=== PATIENT | female | born 1930 | race Caucasian/White ===

== ENCOUNTER 2018-11-21 09:53 | Inpatient (IN) | payer MEDICARE ==
[~2018-11-21] VITALS: Ht 172.7 cm; Wt 78.2 kg
[2018-11-21] MEDS ORDERED: NAMENDA XR14 MG PO (10:00)
[2018-11-21] MEDS ORDERED: DONEPEZIL HCL10 MG PO (10:00)
[2018-11-21 10:59] LABS: BASOPHILS 0.3 % (0-2); EOSINOPHILS 3.2 % (0-7); HEMATOCRIT 37.6 % (36.0-48.0); HEMOGLOBIN 12.2 g/dL (12-16); IMMATURE GRANULOCYTES 0.2 % (0-5); LYMPHOCYTES 16.9 % (15-50); MCH 27.7 pg (26.0-34.0); MCHC 32.4 g/dL (31.0-37.0); MCV 85.3 fL (80.0-100.0); MEAN PLATELET VOLUME 10.6 fL (7.4-10.4); MONOCYTES 10.7 % (2-11); NEUTROPHILS 68.7 % (40-80); PLATELET COUNT 121 10x3/uL (130-400); RBC 4.41 10x6/uL (4.00-5.40); RDW 14.1 % (11.5-14.5)
[2018-11-21 11:13] LABS: ALBUMIN 2.9 g/dL (3.4-5.0); ALKALINE PHOSPHATASE 58 U/L (46-116); ALT (SGPT) 20 U/L (10-68); CALC OSMOLALITY 287 mosm/kg (275-300); CALCIUM 8.1 mg/dL (8.5-10.1); CARBON DIOXIDE 24.5 mmol/L (21.0-32.0); CHLORIDE - SERUM 109 mmol/L (98-107); CREATININE - SERUM 0.5 mg/dL (0.6-1.3); GLUCOSE 98 mg/dL (74-106); POTASSIUM - SERUM 3.8 mmol/L (3.5-5.1); PROTEIN - SERUM 5.6 g/dL (6.4-8.2); SODIUM 143 mmol/L (136-145); UREA NITROGEN 22 mg/dL (7-18); eGFR NON AFRICAN AMERICAN > 90 mL/min (90-120)
[2018-11-21 11:22] LABS: APPEARANCE CLEAR (CLEAR); BILIRUBIN NEGATIVE (NEGATIVE); COLOR YELLOW (YELLOW); GLUCOSE NEGATIVE (NEGATIVE); KETONE LARGE mg/dL (NEGATIVE); NITRITE NEGATIVE (NEGATIVE); PROTEIN NEGATIVE (NEGATIVE); UROBILINOGEN NORMAL (NORMAL)
[2018-11-21 11:23] LABS: BACTERIA NONE SEEN /hpf (NONE SEEN); EPITHELIAL CELLS 0-5 /hpf (0-5); MUCUS >1+ /lpf (NONE SEEN); RED CELLS - URINE NONE SEEN /hpf (0-5); WHITE CELLS - URINE 0-5 /hpf (0-5)
[2018-11-21 11:40] VITALS: BP 160/68
--- NOTE | 2018-11-21 11:55 | NUR ---
WRIST SPLINT PLACED ON PT. PT TO ROOM VIA STRETCHER. VERY TEARFUL, FAMILY AT BEDSIDE.
[2018-11-21 12:07] VITALS: Ht 172.7 cm; Wt 78.2 kg
--- NOTE | 2018-11-21 13:00 | NUR ---
PT ADMITTED TO ROOM WITH FAMILY. SPLIT NOTEDTO LT. WRIST WITH BRUISING NIOTED. GOOD ROM OF DIGITS. BRUISING NOTED TO COCCYX AND BILATERAL KNEES WITH GOOD ROM. DENIES ANY PAIN OR DISCOMFORT AT THIS TIME. FALL PRECAUTIONS IN PLACE DUE TO RECENT FALL. ENCOURAGED TO USE CALL LIGHT FOR ASSIST.
--- NOTE | 2018-11-21 16:54 | NUR ---
PT DISCHARGE HOME WITH FAMILY. VERBALIZED UNDERSTANDING OF DISCHAGE INSTRUCTIONS. STABLE AT TIME OF DEPARTURE.
== END 2018-11-21 16:55 | disposition home or self-care (01) | DRG 552 ==
LOC: D.ER 09:53 → D.MS 11:41
PROVIDERS: Family Medicine; ADMIT Internal Medicine Nephrology; ATTEND Internal Medicine Nephrology
DX: S32.10XA Unspecified fracture of sacrum, initial encounter for closed fracture (principal); S52.502A Unspecified fracture of the lower end of left radius, initial encounter for closed fracture; W19.XXXA Unspecified fall, initial encounter; F03.90 Unspecified dementia, unspecified severity, without behavioral disturbance, psychotic disturbance, mood disturbance, and anxiety

== ENCOUNTER 2018-11-21 09:53 | Outpatient (CLI) | payer MEDICARE ==
[2018-11-21] MEDS ORDERED: NAMENDA XR14 MG PO (10:00)
[2018-11-21] MEDS ORDERED: DONEPEZIL HCL10 MG PO (10:00)
[2018-11-21 12:07] VITALS: BMI 26.2
== END 2018-11-21 11:41 | disposition other institution (70) ==
LOC: D.OPS 09:53
PROVIDERS: ATTEND Internal Medicine Nephrology
DX: S52.502A Unspecified fracture of the lower end of left radius, initial encounter for closed fracture (principal)